=== PATIENT | female | born 1995 | race Caucasian/White ===

== ENCOUNTER → 2018-12-11 14:47 | Outpatient (CLI) | payer OTHER, SELFPAY ==
[2017-10-07 15:39] VITALS: BMI 22.1
[2018-12-17 14:25] LABS: HPV Reflexed? NOT INDICATED
== END ==
PROVIDERS: Family Provider Family Medicine; PCP Family Medicine; Visit Provider Obstetrics & Gynecology
DX: Z12.4 Encounter for screening for malignant neoplasm of cervix (principal)
CPT/HCPCS: 88175; G0145

== ENCOUNTER → 2019-08-27 17:00 | Outpatient (CLI) | payer OTHER, SELFPAY ==
[2019-08-27 11:46] VITALS: BMI 22.1
[2019-08-27 20:13] LABS: Chlamydia Trachomatis by PCR Negative (Negative); Neisserai gonorrhoeae by PCR Negative (Negative); Probe Check PASS; Specimen Processing Control PASS
[2019-08-27 20:14] LABS: Sample Adequacy Control PASS
== END ==
PROVIDERS: Family Provider Family Medicine; PCP Family Medicine; Visit Provider Obstetrics & Gynecology
DX: Z34.90 Encounter for supervision of normal pregnancy, unspecified, unspecified trimester (principal)
CPT/HCPCS: 87086; 87088; 87491; 87591

== ENCOUNTER → 2019-09-23 09:11 | Outpatient (CLI) | payer OTHER, SELFPAY ==
[2019-09-23 09:02] VITALS: BMI 22.1
[2019-09-23 09:39] LABS: Absolute Lymphocyte Count 1.65 X10^3/uL (0.83-4.51); Absolute Neutrophil Count 3.7 X10^3/uL (2.0-7.7); Basophil# 0.03 X10^3/uL; Basophil% 0.5 % (0-1); Eosinophils% 1.7 % (0-5); Hematocrit 36.2 % (37-47); Hemoglobin 11.8 g/dL (12.0-15.0); Lymphocyte # 1.65 X10^3/ul (4.0); Mean Corp Hgb Conc 32.6 g/dL (32-36); Mean Corpuscular Hgb 27.3 pg (27.0-32.0); Mean Corpuscular Volume 83.8 fL (81-99); Mean Platelet Vol. 9.2 fl (6.2-12.0); Monocyte# 0.33 X10^3/uL; Monocyte% 5.6 % (0-10); NRBC Flagged by Analyzer 0 % (0-5); Neutrophil # 3.74 X10^3/uL (2.7-7.7); Neutrophil % 63.5 % (47-70); Platelet Count 271 K/mm3 (150-450); RBC Distribution Width CV 14.1 % (11.6-14.6); RBC Distribution Width SD 43.1 fl (35.1-43.9); Red Blood Count 4.32 M/mm3 (4.2-5.4); White Blood Count 5.9 K/mm3 (4.4-11.0)
[2019-09-23 11:22] LABS: HIV - WCH Non-Reactive (Nonreactive); Hepatitis B Surface Antigen Non-Reactive (Nonreactive); Rubella IgG 250.9 IU/mL
[2019-09-24 01:54] LABS: Rapid Plasmin Reagin (RPR) NONREACTIVE (NONREACTIVE)
== END ==
PROVIDERS: Family Provider Family Medicine; PCP Family Medicine; Referring Provider Obstetrics & Gynecology; Visit Provider Obstetrics & Gynecology
DX: Z34.90 Encounter for supervision of normal pregnancy, unspecified, unspecified trimester (principal)
CPT/HCPCS: 36415; 85025; 86592; 86703; 86762; 86850; 86900; 86901; 87340

== ENCOUNTER → 2019-10-15 17:05 | Outpatient (CLI) | payer OTHER, SELFPAY ==
[2019-10-15 13:10] VITALS: BMI 22.1
== END ==
PROVIDERS: Family Provider Family Medicine; PCP Family Medicine; Referring Provider Nurse Practitioner Women's Health; Visit Provider Nurse Practitioner Women's Health
DX: N39.0 Urinary tract infection, site not specified (principal)
CPT/HCPCS: 87086; 87088

== ENCOUNTER → 2019-12-31 08:27 | Outpatient (CLI) | payer OTHER, SELFPAY ==
[2019-12-18 08:22] VITALS: BMI 25.1
[2019-12-31 09:25] LABS: Absolute Lymphocyte Count 1.49 X10^3/uL (0.83-4.51); Absolute Neutrophil Count 3.4 X10^3/uL (2.0-7.7); Basophil# 0.01 X10^3/uL; Basophil% 0.2 % (0-1); Eosinophil# 0.09 X10^3/uL; Eosinophils% 1.7 % (0-5); Hematocrit 30.6 % (37-47); Hemoglobin 9.4 g/dL (12.0-15.0); Lymphocyte # 1.49 X10^3/ul (4.0); Lymphocyte % 28.3 % (19-41); Mean Corp Hgb Conc 30.7 g/dL (32-36); Mean Corpuscular Hgb 27.3 pg (27.0-32.0); Mean Platelet Vol. 9.6 fl (6.2-12.0); Monocyte# 0.21 X10^3/uL; NRBC Flagged by Analyzer 0 % (0-5); Neutrophil # 3.37 X10^3/uL (2.7-7.7); Neutrophil % 64.1 % (47-70); Platelet Count 238 K/mm3 (150-450); RBC Distribution Width CV 13.6 % (11.6-14.6); RBC Distribution Width SD 44.1 fl (35.1-43.9); Red Blood Count 3.44 M/mm3 (4.2-5.4); White Blood Count 5.3 K/mm3 (4.4-11.0)
[2019-12-31 09:38] LABS: Glucose Challenge Gest 1H 50g 109 mg/dL (70-140)
== END ==
PROVIDERS: PCP Family Medicine; Referring Provider Obstetrics & Gynecology; Visit Provider Obstetrics & Gynecology
DX: Z34.90 Encounter for supervision of normal pregnancy, unspecified, unspecified trimester (principal)
CPT/HCPCS: 36415; 82950; 85025

== ENCOUNTER → 2020-02-25 09:34 | Outpatient (CLI) | payer OTHER, SELFPAY ==
[2020-02-25 09:14] VITALS: BMI 25.1
[2020-02-25 09:55] LABS: Absolute Lymphocyte Count 1.65 X10^3/uL (0.83-4.51); Absolute Neutrophil Count 4.7 X10^3/uL (2.0-7.7); Basophil# 0.03 X10^3/uL; Basophil% 0.4 % (0-1); Eosinophil# 0.08 X10^3/uL; Eosinophils% 1.1 % (0-5); Hematocrit 31.8 % (37-47); Hemoglobin 9.8 g/dL (12.0-15.0); Lymphocyte # 1.65 X10^3/ul (4.0); Lymphocyte % 23.6 % (19-41); Mean Corp Hgb Conc 30.8 g/dL (32-36); Mean Corpuscular Hgb 26.8 pg (27.0-32.0); Mean Corpuscular Volume 87.1 fL (81-99); Mean Platelet Vol. 9.6 fl (6.2-12.0); Monocyte# 0.42 X10^3/uL; NRBC Flagged by Analyzer 0 % (0-5); Neutrophil # 4.73 X10^3/uL (2.7-7.7); Neutrophil % 67.9 % (47-70); Platelet Count 208 K/mm3 (150-450); RBC Distribution Width SD 44.4 fl (35.1-43.9); Red Blood Count 3.65 M/mm3 (4.2-5.4)
== END ==
PROVIDERS: Obstetrics & Gynecology; PCP Family Medicine; Referring Provider Nurse Practitioner Women's Health; Visit Provider Nurse Practitioner Women's Health
DX: O99.019 Anemia complicating pregnancy, unspecified trimester (principal); D64.9 Anemia, unspecified; Z3A.00 Weeks of gestation of pregnancy not specified
CPT/HCPCS: 85025

== ENCOUNTER → 2020-03-08 10:28 | Outpatient (CLI) | payer OTHER, SELFPAY ==
[2020-02-25 09:14] VITALS: BMI 25.1
[2020-03-08 10:44] VITALS: BP 136/76; PULSE 108; RESP 18; TEMP 36.7; BMI 27.4
[2020-03-08] MEDS: 0.9% NaCl IVPB Med Flush (250 mL) 15 ML IV (10:44)
[2020-03-08 12:47] VITALS: BP 123/72; PULSE 93; RESP 16
== END ==
PROVIDERS: PCP Family Medicine; Referring Provider Obstetrics & Gynecology; Visit Provider Obstetrics & Gynecology
DX: O99.019 Anemia complicating pregnancy, unspecified trimester (principal); D64.9 Anemia, unspecified; Z3A.00 Weeks of gestation of pregnancy not specified
CPT/HCPCS: 96365; 96366; J1756; J7050

== ENCOUNTER → 2020-03-10 | Outpatient (CLI) | payer OTHER, SELFPAY ==
[2020-03-10 09:15] VITALS: BMI 27.5
== END | disposition home or self-care (01) ==
LOC: LABSPEC 16:01
PROVIDERS: Referring Provider Obstetrics & Gynecology; Visit Provider Obstetrics & Gynecology
DX: Z34.03 Encounter for supervision of normal first pregnancy, third trimester (principal)
CPT/HCPCS: 87081

== ENCOUNTER → 2020-03-15 10:31 | Outpatient (CLI) | payer OTHER, SELFPAY ==
[2020-02-25 09:14] VITALS: BMI 25.1
[2020-03-10 09:15] VITALS: BMI 27.5
[2020-03-15 10:35] VITALS: BP 122/75; PULSE 100; RESP 16; TEMP 36.4; O2SAT 100; BMI 27.3
[2020-03-15] MEDS: 0.9% NaCl Peripheral Flush Adult/Peds IV (10:46)
[2020-03-15] MEDS: 0.9% NaCl IVPB Med Flush (250 mL) 15 ML IV (10:47)
[2020-03-15 12:35] VITALS: BP 109/73; PULSE 98
--- NOTE | 2020-03-15 14:02 | US_ITS ---
STUDY: SECOND AND THIRD TRIMESTER OBSTETRICAL ULTRASOUND - LIMITED REASON FOR EXAM: Female, 24 years old. Anemia. growth. LMP: 06/09/2019 PRIOR ULTRASOUND: None. TECHNIQUE: Transabdominal ultrasound evaluation was performed. FINDINGS: There is a single intrauterine fetus. The fetus is in a cephalic presentation. There is demonstrated cardiac activity with a heart rate of 151 bpm. There is a normal amniotic fluid volume. The largest amniotic fluid pocket measures 6.2 cm. The amniotic fluid index (KELLE) is 16.6 cm. The placenta is posterior. The cervix is closed and measures 3.8 cm in length. The relationship of the placenta and the cervix is not evaluated due to the full urinary bladder. BIOMETRY: BPD: 9.36 cm: 38 weeks, 0 days HC: 33.65 cm: 38 weeks, 3 days AC: 34.87 cm: 38 weeks, 5 days FL: 7.50 cm: 38 weeks, 2 days Age by LMP: 37 weeks, 4 days. ZOË by LMP: 04/01/2020. age by prior US: 37 weeks, 5 days. ZOË by prior US: 03/31/2020. age by current US: 38 weeks, 2 days. ZOË by current US: 03/27/2020. Estimated weight: 3533 grams, +/- 523 grams, 82.3 percentile. US/OB Limited With Biometrics IMPRESSION: Single live intrauterine gestation at approximately 38 weeks and 2 days based on the current ultrasound. Electronically Signed: Yusef Webb, at 15:22 EDT Tel , Service support ,
== END ==
PROVIDERS: PCP Family Medicine; Referring Provider Obstetrics & Gynecology; Visit Provider Obstetrics & Gynecology
DX: O99.019 Anemia complicating pregnancy, unspecified trimester (principal); D64.9 Anemia, unspecified; O26.843 Uterine size-date discrepancy, third trimester; Z3A.38 38 weeks gestation of pregnancy
CPT/HCPCS: 96365; 96366; 76816; J1756; J7050; A4216

== ENCOUNTER → 2020-03-24 09:30 | Outpatient (CLI) | payer OTHER, SELFPAY ==
[2020-02-25 09:14] VITALS: BMI 25.1
[2020-03-24 09:10] VITALS: BMI 27.3
[2020-03-24 09:47] VITALS: BP 108/70; PULSE 106; RESP 16; TEMP 36.4; O2SAT 98; BMI 27.8
[2020-03-24] MEDS: 0.9% NaCl IVPB Med Flush (250 mL) 15 ML IV (09:58)
[2020-03-24] MEDS: 0.9% NaCl Peripheral Flush Adult/Peds IV (09:58)
[2020-03-24 11:53] VITALS: BP 108/66; PULSE 90; RESP 16
== END ==
PROVIDERS: PCP Family Medicine; Referring Provider Obstetrics & Gynecology; Visit Provider Obstetrics & Gynecology
DX: O99.019 Anemia complicating pregnancy, unspecified trimester (principal); D64.9 Anemia, unspecified; Z3A.00 Weeks of gestation of pregnancy not specified
CPT/HCPCS: 96365; 96366; J1756; J7050; A4216

== ENCOUNTER 2020-03-27 07:57 | Inpatient (IN) | payer OTHER, SELFPAY ==
[2020-03-24 09:47] VITALS: BMI 27.8
[2020-03-27] VITALS (20 sets, daily range): BP systolic 114–142; BP diastolic 66–84; PULSE 90–121; TEMP 36.3–36.9; O2SAT 97–100; BMI 27.9
[2020-03-27] MEDS: 0.9% Saline Lock 10 ML Syringe IV (08:44)
[2020-03-27 09:07] LABS: Absolute Lymphocyte Count 1.71 X10^3/uL (0.83-4.51); Absolute Neutrophil Count 4.2 X10^3/uL (2.0-7.7); Basophil# 0.03 X10^3/uL; Basophil% 0.5 % (0-1); Eosinophil# 0.09 X10^3/uL; Eosinophils% 1.4 % (0-5); Hematocrit 35.8 % (37-47); Lymphocyte # 1.71 X10^3/ul (4.0); Lymphocyte % 25.9 % (19-41); Mean Corp Hgb Conc 30.7 g/dL (32-36); Monocyte# 0.51 X10^3/uL; Monocyte% 7.7 % (0-10); NRBC Flagged by Analyzer 0 % (0-5); Neutrophil # 4.16 X10^3/uL (2.7-7.7); Neutrophil % 62.8 % (47-70); Platelet Count 218 K/mm3 (150-450); RBC Distribution Width CV 15.3 % (11.6-14.6); Red Blood Count 4.07 M/mm3 (4.2-5.4); White Blood Count 6.6 K/mm3 (4.4-11.0)
[2020-03-27] MEDS: Lactated Ringers 1,000 ML 50 ML IV (12:53)
[2020-03-27] MEDS: Oxytocin 30 units/NS 500 ml 30 UNITS/500 ML IV.SOLN IV (12:53)
--- NOTE | 2020-03-27 13:19 | HP.PCM_ITS ---
- Problem List (1) SROM (spontaneous rupture of membranes) Status: Acute (2) Anemia affecting Status: Acute Qualifiers: Comment: Start iron, repeat cbc end of february (3) Large for gestational age fetus Status: Acute Comment: IoL at 39 weeks; COVID testing ordered 03/24/20 (4) Status: Acute Qualifiers: Comment: declines genetic, carrier and NTD testing at this time. Anatomy US normal. (5) Supervision of normal Status: Acute Qualifiers: Comment: PRR ZOË 04/01/20 girl Jude Spouse Christianne History and Physical Date of Admission: 03/27/20 Intake Vital Signs 03/24/20 BMI 27.3 03/24/20 Height 5 ft 4 in 03/24/20 Height 5 ft 4 in 03/24/20 Weight: 163 lb 03/24/20 BMI 27.9 03/24/20 BP 136/80 H Intake Visit Reasons: 38 WEEK OB Project Financial Analyst Required: No Is patient in pain?: No Allergies naproxen [From Naprosyn] Adverse Reaction (Verified 03/24/20 09:04) Vomiting Medications PNV w/calcium 66-iron 27 mg-folic 1.25 mg-DSS 55 mg-dha 300 mg capsule cap PO cap 08/27/19 [History Confirmed 03/24/20] Last Menstral Period: 06/26/19 Zika: Zika virus screening: Negative : No PFSH PFSH Medical History Left knee injury (Resolved) Surgical History S/P breast biopsy, bilateral (Acute) Family History Mother Colon cancer Father Hypertension Social History (Updated 03/24/20 @ 09:[address] Louisa Mancini MD) adopted: No household members: spouse housing: house current occupational status: employed current occupation: [place] pets and animals: Yes history of recent travel: No sexually active: Yes Smoking Status: Unknown if ever smoked second hand exposure: No alcohol intake: never substance use type: does not use caffeine: No frequency: 1-2 times per week seatbelt use: always do you feel safe at home: Yes additional social history: Christianne- [employer] History 1 Elective abortions Hx Para Spontaneous abortions Hx # Term Pregnancies Ectopic pregnancies Hx # Pregnancies Multiple births # of living children HPI 38 WEEK OB: Details: MAIRA CELESTIN is a 24 year old G1, P0 presents at 39 weeks 2 days with spontaneous rupture membranes clear fluid. It was discussed to induce around this time anyways due to large for gestational age with estimated weight of being in the 85th and 90th percentile. Overall estimated weight at this time is approximately 8 pounds. OB Visit ZOË Calculator Estimated Delivery Date Method Current WG Current Estimate 04/01/20 LMP (Certain) 38w 6d Expected Delivery Route/Plan Labor Preferences- labor support person: christianne pain management options preferred: minimal intervention cut cord/dad catch: cord : yes PP control planned: [] discussed possible routes of delivery and associated risks: [] special requests: [] Specific Issue/Plans flu vaccine: declined tdap vaccine: given rhogam: na LARC form signed: yes movement and labor precautions reviewed. Problem list reviewed and updated with the most current plan of care details and appropriate orders placed. Relevant counseling for the gestational age provided. Continue routine care and follow up unless otherwise noted in visit notes/problem list details Initial Weight: 134 lb Date EGA Weight BP Urine Prot Glucose FHR FuHt Pres Dilation Effaced St Visit Note 09/23/19 12w 5d 136 lb (+2 lb) 126/84 140 10/23/19 17w 0d 138 lb (+4 lb) 112/74 Negative Negative 145 SM- no vb cramping 11/23/19 21w 3d 146 lb 8 oz (+12 lb 8 oz) 133/83 Negative Negative 145 SM- no vb lof good fm no regular ctx 12/18/19 25w 0d 150 lb 4 oz (+16 lb 4 oz) 126/68 Negative Negative 140 25 SM- no vb lof good fm no reg ctx 12/31/19 26w 6d 153 lb (+19 lb) 120/70 Negative Negative 145 27 SM- no vb lof good fm no regular ctx 01/14/20 28w 6d 153 lb 8 oz (+19 lb 8 oz) 108/58 Negative Negative 140 30 Cephalic SM- no vb lof good fm no regular ctx tdap given 01/28/20 30w 6d 154 lb 8 oz (+20 lb 8 oz) 120/68 Negative Negative 140 32 Cephalic SM- no vb lof good fm no regular ctx 02/25/20 34w 6d 161 lb 8 oz (+27 lb 8 oz) 122/68 Trace Negative 148 35 MH-NO VB, LOF. Good FM. 03/10/20 36w 6d 160 lb 8 oz (+26 lb 8 oz) 114/76 Negative Negative 150 39 Cephalic 1 20 -3 SM- no vb lof good fm no regular ctx gbs today 03/17/20 37w 6d 163 lb (+29 lb) 115/68 145 40 Cephalic 3 60 -2 SM- no vb lof good fm no regular ctx 03/24/20 38w 6d 163 lb (+29 lb) 136/80 Negative Negative 140 41 Cephalic 3 60 -2 SM- no vb lof good fm no regular ctx plan IOL 39 weeks macrosomia ACOG First Trimester First Trimester: Desire for , Alcohol, Tobacco Cessation, Illicit/Recreational Drug/Substance Use, Intimate Partner Violence, Barriers to care, Unstable Housing, Communication Barriers, Environmental/Work Hazards, Anticipated Course of Care, Toxoplasmosis Precations, Use of Any medications, Sexual activity, Exercise, Dental Care, Sauna/Hot tub use, Seat Belt use, Childbirth classes/Hospital facilities, , Travel, Indications for US and Screening for Aneuploidy Second Trimester Second Trimester: Signs and Symptoms of Labor, Selecting a care provider, Reproductive Life Planning, Care Planning, Tobacco Cessation, Depression/Anxiety and Intimate Partner Violence Third Trimester Third Trimester: Pain Management Plans, Labor support person(s), Immediate Larc, Movement Monitoring and Feeding Yes ; discussed Trial of Labor after Counseling or discussed Circumcision preference Diagnostics Diagnostics Diagnostics Glucose 1 Hr 50 gm 109 mg/dL (70-140) 12/31/19 Hgb 9.8 g/dL (12.0-15.0) L 02/25/20 Hct 31.8 % (37-47) L 02/25/20 Details: HIV: Urine Culture: Sequential Screen: NIPT Screen: ROS Const Reports system reviewed and no additional complaints, except as docu Card Reports system reviewed and no additional complaints, except as docu Resp Reports system reviewed and no additional complaints, except as docu GI Reports system reviewed and no additional complaints, except as docu, Reports nausea Reports system reviewed and no additional complaints, except as docu Musc Reports system reviewed and no additional complaints, except as docu Exam Const General: cooperative, healthy appearing, comfortable, anxious HENMT Head: normal to inspection Nose: external nose normal Face and sinus: normal facial exam Neck Neck: normal visual inspection, full ROM, no lymphadenopathy Thyroid: thyroid normal Chest Chest palpation & inspection: normal inspection of the chest Resp Effort & Inspection: normal respiratory effort GI Inspection: normal to inspection Palpation: soft, other (gravid uterus) Other: vertex and appropriate size for gestational age Other: Cervical Exam: Extrem General: pedal edema Results POC Urinalysis 2 Dip (Clinic) Office Urine Glucose Negative Last Edit by Elodia Bruner on 03/24/20 09:18 Office Urine Protein Negative Last Edit by Elodia Bruner on 03/24/20 09:18 Assessment & Plan Problems 1. Anemia affecting in third trimester O99.013 Start iron, repeat cbc end of february 2. Encounter for supervision of normal first in third trimester Z34.03 PRR ZOË 04/01/20 girl Jude Spouse Christianne 3. 38 weeks gestation of Z3A.38 declines genetic, carrier and NTD testing at this time. Anatomy US normal. 4-year-old G1, P0 at 39 weeks 2 days presents with spontaneous rupture of membranes Additional bag ruptured and clear fluid seen. Pitocin augmentation due to minimal cervical change. Epidural if desired. Orders Orders: POC Urinalysis 2 Dip (Clinic) Today Coding Level of Care Code OB Routine Diagnoses Anemia affecting in third trimester O99.013 ??Trimester: third trimester Encounter for supervision of normal first in third trimester Z34.03 ??Normal : normal first ??Trimester: third trimester 38 weeks gestation of Z3A.38 ??Weeks of gestation: 38 weeks
[2020-03-27] MEDS: fentaNYL 100 MCG/2 ML Ampul IV (15:12)
[2020-03-27] MEDS: Lactated Ringers 1,000 ML 200 ML IV (19:32)
--- NOTE | 2020-03-27 21:28 | PCM.OPRPT ---
Problem List (1) SROM (spontaneous rupture of membranes) Status: Acute (2) Anemia affecting Status: Acute Qualifiers: Comment: Start iron, repeat cbc end of february (3) Large for gestational age fetus Status: Acute Comment: IoL at 39 weeks; COVID testing ordered 03/24/20 (4) Status: Acute Qualifiers: Comment: declines genetic, carrier and NTD testing at this time. Anatomy US normal. (5) Supervision of normal Status: Acute Qualifiers: Comment: PRR ZOË 04/01/20 girl Jude Spouse Víctor Vaginal Delivery Maternal Presentation: Active Labor, Spontaneous Rupture of Membranes 24 yo @ 39w2d presents with SROm clear fluid 4 cm Amniotic Membrane Rupture Type: Spontaneous at home Amniotic Fluid Description: Clear Final ZOË: 04/01/20 Gestational age: 39 Weeks and 2 Days Date of Procedure: 03/27/20 Pre-Operative Diagnosis: srom Post-Operative Diagnosis: same Surgery/ Procedure Performed: Spontaneous Vaginal Delivery Type of Anesthesia: Local with 1% lidocaine Description of Procedure: Patient began pushing and delivered the head in the ROP presentation. The head was delivered atraumatically. The anterior and posterior shoulders delivered without complication followed by the rest of the infant and the was placed on the maternal abdomen. Delayed cord clamping was employed for approximately 60 seconds. Cord was clamped and cut and gentle traction was applied to the cord and the placenta delivered spontaneously immediately following it was noted to be intact with three-vessel cord. The perineum and vagina were inspected and noted to have a second-degree perineal laceration which was injected with 1% lidocaine. EBL was 400 cc. Patient and tolerated delivery well. Placental Delivery Description: Spontaneous Placenta Disposition: [facility] Cord Vessel Description: 3 Vessels Cord Entanglement: None Estimated Blood Loss: 400 Infant A gender: Female Episiotomy Description: None Laceration: Perineal Extension/lac, 2nd degree Medications given after delivery: IV Pitocin Complications: None Multi Select Codes - Urinary/Genital Urinary/Genital CPT Codes: 39807 Vaginal Delivery global pk
--- NOTE | 2020-03-27 21:31 | DCINST_ITS ---
Discharge Diet: No Restrictions Discharge Activity: Return to Normal Activity, May not drive while taking narcotic pain medications., May Shower May resume sexual activity in: 4-6 weeks Call your doctor if your incision/area has: Continuous Slow Oozing, Sudden Increased Bleeding, Increased Pain/ Swelling, Increased Redness, Foul Smelling Discharge Additional Instructions: If you experience any of the following, contact your healthcare provider. * Bleeding that soaks a pad every hour for 2 hours * Fever 100.4 or higher * Unrelieved incision or abdominal pain * Swelling, redness, discharge or bleeding from your incision or episiotomy site * Your incision begins to separate * Problems urinating (including inability to urinate or burning while urinating). * Visual changes * Severe headache * Flu-like symptoms * Pain or redness in one of both of your breasts * Pain, warmth, tenderness or swelling in your legs, especially the calf area * Frequent nausea and vomiting * Symptoms of depression or anxiety If you experience any of the following, call 911 or go to the nearest Emergency Room. * Chest pain * Problems breathing * Seizure activity * Partial or complete paralysis of a body part, slurred speech, weakness or drooping of the face, or a sudden inability to walk or hold your balance Allergies/Adverse Reactions: Allergies naproxen [From Naprosyn] Adverse Reaction (Verified 03/27/20 08:32) Vomiting Medications to take at Discharge PNV w/calcium 66-iron 27 mg-folic 1.25 mg-DSS 55 mg-dha 300 mg capsule 1 cap PO DAILY cap 08/27/19 Please Follow Up With: Louisa Mancini MD - [phone] When: Call to make an appointment with your doctor in 6 weeks. If you had elevated Blood pressure or 4th degree laceration you will need to be seen in 2 weeks. Test Results: Test results from this visit will be discussed in further detail at your follow- up appointment, if applicable.
--- NOTE | 2020-03-27 21:31 | PCM.DCVAG ---
Discharge Diet: No Restrictions Discharge Activity: Return to Normal Activity, May not drive while taking narcotic pain medications., May Shower May resume sexual activity in: 4-6 weeks Call your doctor if your incision/area has: Continuous Slow Oozing, Sudden Increased Bleeding, Increased Pain/ Swelling, Increased Redness, Foul Smelling Discharge Additional Instructions: If you experience any of the following, contact your healthcare provider. Bleeding that soaks a pad every hour for 2 hours Fever 100.4 or higher Unrelieved incision or abdominal pain Swelling, redness, discharge or bleeding from your incision or episiotomy site Your incision begins to separate Problems urinating (including inability to urinate or burning while urinating). Visual changes Severe headache Flu-like symptoms Pain or redness in one of both of your breasts Pain, warmth, tenderness or swelling in your legs, especially the calf area Frequent nausea and vomiting Symptoms of depression or anxiety If you experience any of the following, call 911 or go to the nearest Emergency Room. Chest pain Problems breathing Seizure activity Partial or complete paralysis of a body part, slurred speech, weakness or drooping of the face, or a sudden inability to walk or hold your balance Allergies/Adverse Reactions: Allergies naproxen [From Naprosyn] Adverse Reaction (Verified 03/27/20 08:32) Vomiting Medications to take at Discharge PNV w/calcium 66-iron 27 mg-folic 1.25 mg-DSS 55 mg-dha 300 mg capsule 1 cap PO DAILY cap 08/27/19 Please Follow Up With: Louisa Mancini MD - [phone] When: Call to make an appointment with your doctor in 6 weeks. If you had elevated Blood pressure or 4th degree laceration you will need to be seen in 2 weeks. Test Results: Test results from this visit will be discussed in further detail at your follow-up appointment, if applicable.
[2020-03-27] MEDS: Lactated Ringers 500 ML 999 ML IV (21:53)
[2020-03-27] MEDS: Oxytocin 30 units/NS 500 ml 30 UNITS/500 ML IV.SOLN 334 UNITS IV (23:05)
[2020-03-28] VITALS (15 sets, daily range): BP systolic 104–141; BP diastolic 65–79; PULSE 93–111; RESP 16–18; TEMP 36.4–37.6; O2SAT 96–99
[2020-03-28] MEDS: Acetaminophen 500 MG Tablet 1000 MG PO ×3 (00:34→21:03)
[2020-03-28] MEDS: 0.9% Saline Lock 10 ML Syringe IV (01:38)
[2020-03-28] MEDS: Prenatal Vits Tablet 1 TABLET PO (09:15)
--- NOTE | 2020-03-28 09:18 | PCM.PN.OB ---
Patient Problems: Active and Suspected Problems (Last Reviewed 03/24/20 @ 09:04 by Elodia Bruner) SROM (spontaneous rupture of membranes) (Acute) Subjective: Doing well, no complaints.Pain controlled. Denies CP, SOB, N,V. Ambulating well, tolerating po. Lochia moderate, going well. - Physical Exam Vitals/I&O's: Vital Signs Temp Pulse Resp BP Pulse Ox 98.2 F 100 16 104/66 98 03/28/20 06:27 03/28/20 09:11 03/28/20 06:27 03/28/20 09:11 03/28/20 06:27 Oxygen Delivery Method Room Air Weight: 162 lb 11.218 oz Body Mass Index (BMI) 27.9 Intake and Output for Last 24 Hours 03/26/20 03/27/20 03/28/20 23:59 23:59 23:59 Intake Total 3053.49 / 3053.49 333 / 333 Output Total 750 / 750 800 / 800 Balance 2303.49 / 2303.49 -467 / -467 General: Alert, Oriented x3 Abdomen: Soft, Non Tender, - - FF below U Microbiology Past 72 Hours 03/27/20 09:08 Mucosa - Nasopharyngeal Coronavirus COVID-19 PCR - Final Laboratory Results 03/27/20 08:44: Blood Type A POSITIVE, Antibody Screen NEGATIVE Current Medications Acetaminophen (Tylenol) 1,000 mg PO Q8H PRN PRN PRN Reason: Pain Score 1-3/10 Last Admin: 03/28/20 00:34 Dose: 1,000 mg Documented by: Bisacodyl (Dulcolax) 10 mg RECTAL UD PRN PRN Reason: If no BM Dibucaine (Dibucaine) 1 applic TOPICAL TID PRN PRN; Protocol PRN Reason: Discomfort Hydrocortisone (Hytone) 1 applic TOPICAL TID PRN PRN; Protocol PRN Reason: Discomfort Methylergonovine Maleate (Methergine) 0.2 mg IM X1 PRN PRN Reason: Excess bleeding/uterine atony Ondansetron HCl (Zofran) 4 mg IV Q4H PRN PRN PRN Reason: Nausea Oxycodone HCl (Oxyir) 5 - 10 mg PO Q4H PRN PRN PRN Reason: Pain Score 4-10/10 Multivit/Folic Acid/Iron (Prenatabs Fa) 1 tablet PO DAILY TERESA Last Admin: 03/28/20 09:15 Dose: 1 tablet Documented by: Senna/Docusate Sodium (Senokot-S, Anni-Colace) 1 - 2 tablet PO DAILY PRN PRN PRN Reason: Constipation Simethicone (Mylicon) 80 mg PO PCHS PRN PRN Reason: Indigestion/Stomach pain Sodium Chloride () 5 - 15 ml IV UD PRN PRN Reason: SALINE FLUSH Last Admin: 03/28/20 01:38 Dose: 10 ml Documented by: Medical Necessity - Tobacco Use Smoking Status: Never smoker Assessment/Plan All Active Problems (Last Reviewed 03/24/20 @ 09:04 by Elodia Bruner) SROM (spontaneous rupture of membranes) (Acute) Large for gestational age fetus (Acute) Anemia affecting (Acute) Supervision of normal (Acute) (Acute) Left knee injury (Resolved) s/p PPD # 1 1. routine post delivery care 2. breast feeding- support given 3. rh positive 4. rubella immune
[2020-03-28] MEDS: Dibucaine 30 GM Tube 1 APPLIC TOPICAL (10:05)
[2020-03-29 02:58] VITALS: BP 114/71; PULSE 100
[2020-03-29 03:00] VITALS: BP 114/71; PULSE 88; RESP 18; TEMP 36.7
[2020-03-29] MEDS: Acetaminophen 500 MG Tablet 1000 MG PO (05:58)
--- NOTE | 2020-03-29 07:56 | PCM.PN.OB ---
Patient Problems: Active and Suspected Problems (Last Reviewed 03/24/20 @ 09:04 by Elodia Bruner) SROM (spontaneous rupture of membranes) (Acute) Subjective: Doing well, no complaints.Pain controlled. Denies CP, SOB, N,V. Ambulating well, tolerating po. Lochia moderate, going well. - Physical Exam Vitals/I&O's: Vital Signs Temp Pulse Resp BP Pulse Ox 98.0 F 88 18 114/71 98 03/29/20 03:00 03/29/20 03:00 03/29/20 03:00 03/29/20 03:00 03/28/20 16:14 Oxygen Delivery Method Room Air Weight: 162 lb 11.218 oz Body Mass Index (BMI) 27.9 Intake and Output for Last 24 Hours 03/27/20 03/28/20 03/29/20 23:59 23:59 23:59 Intake Total 3053.49 / 3053.49 333 / 333 Output Total 750 / 750 800 / 800 Balance 2303.49 / 2303.49 -467 / -467 General: Alert, Oriented x3 Abdomen: Soft, Non Tender, - - FF at U Microbiology Past 72 Hours 03/27/20 09:08 Mucosa - Nasopharyngeal Coronavirus COVID-19 PCR - Final Current Medications Acetaminophen (Tylenol) 1,000 mg PO Q8H PRN PRN PRN Reason: Pain Score 1-3/10 Last Admin: 03/29/20 05:58 Dose: 1,000 mg Documented by: Bisacodyl (Dulcolax) 10 mg RECTAL UD PRN PRN Reason: If no BM Dibucaine (Dibucaine) 1 applic TOPICAL TID PRN PRN; Protocol PRN Reason: Discomfort Last Admin: 03/28/20 10:05 Dose: 1 tube Documented by: Hydrocortisone (Hytone) 1 applic TOPICAL TID PRN PRN; Protocol PRN Reason: Discomfort Methylergonovine Maleate (Methergine) 0.2 mg IM X1 PRN PRN Reason: Excess bleeding/uterine atony Ondansetron HCl (Zofran) 4 mg IV Q4H PRN PRN PRN Reason: Nausea Oxycodone HCl (Oxyir) 5 - 10 mg PO Q4H PRN PRN PRN Reason: Pain Score 4-10/10 Multivit/Folic Acid/Iron (Prenatabs Fa) 1 tablet PO DAILY TERESA Last Admin: 03/28/20 09:15 Dose: 1 tablet Documented by: Senna/Docusate Sodium (Senokot-S, Anni-Colace) 1 - 2 tablet PO DAILY PRN PRN PRN Reason: Constipation Simethicone (Mylicon) 80 mg PO PCHS PRN PRN Reason: Indigestion/Stomach pain Sodium Chloride () 5 - 15 ml IV UD PRN PRN Reason: SALINE FLUSH Last Admin: 03/28/20 01:38 Dose: 10 ml Documented by: Medical Necessity - Tobacco Use Smoking Status: Never smoker Assessment/Plan All Active Problems (Last Reviewed 03/24/20 @ 09:04 by Elodia Bruner) SROM (spontaneous rupture of membranes) (Acute) Large for gestational age fetus (Acute) Anemia affecting (Acute) Supervision of normal (Acute) (Acute) Left knee injury (Resolved) s/p PPD # 2 1. routine post delivery care 2. breast feeding- support given 3. rh positive 4. rubella immune 5. home today
[2020-03-29 09:00] VITALS: BP 114/69; PULSE 83; RESP 16; TEMP 36.2
[2020-03-29 09:18] VITALS: BP 114/69; PULSE 93
[2020-03-29] MEDS: Prenatal Vits Tablet 1 TABLET PO (10:45)
== END 2020-03-29 11:00 | disposition home or self-care (01) | DRG 807 ==
PROVIDERS: Admitting Provider Obstetrics & Gynecology; Visit Provider Obstetrics & Gynecology
DX: O42.92 Full-term premature rupture of membranes, unspecified as to length of time between rupture and onset of labor (principal); Z37.0 Single live birth; O36.63X0 Maternal care for excessive fetal growth, third trimester, not applicable or unspecified; O99.02 Anemia complicating childbirth; D64.9 Anemia, unspecified; O70.1 Second degree perineal laceration during delivery; Z3A.39 39 weeks gestation of pregnancy; Z28.21 Immunization not carried out because of patient refusal
CPT/HCPCS: 59025; 59050; 85025; 86850; 86900; 86901; 87635; 99218; G2023; J7120; A4216; G0378; U0004

== ENCOUNTER → 2020-10-18 | Outpatient (CLI) | payer OTHER, SELFPAY ==
[2020-05-10 15:58] VITALS: BMI 27.9
== END | disposition home or self-care (01) ==
LOC: LABSPEC 15:15
PROVIDERS: PCP Family Medicine; Visit Provider Family Medicine
DX: U07.1 COVID-19 (principal)
CPT/HCPCS: 87635; U0003

== ENCOUNTER → 2021-05-11 09:41 | Outpatient (CLI) | payer OTHER, SELFPAY ==
[2021-05-11 08:41] VITALS: BMI 27.9
[2021-05-11 10:07] LABS: Absolute Lymphocyte Count 1.33 X10^3/uL (0.83-4.51); Absolute Neutrophil Count 2.1 X10^3/uL (2.0-7.7); Basophil# 0.04 X10^3/uL; Eosinophil# 0.32 X10^3/uL; Eosinophils% 7.8 % (0-5); Hematocrit 39.9 % (37-47); Hemoglobin 12.3 g/dL (12.0-15.0); Lymphocyte # 1.33 X10^3/ul (0.83-4.51); Lymphocyte % 32.4 % (19-41); Mean Corp Hgb Conc 30.8 g/dL (32-36); Mean Corpuscular Hgb 25.7 pg (27.0-32.0); Mean Corpuscular Volume 83.3 fL (81-99); Mean Platelet Vol. 9.4 fl (6.2-12.0); Monocyte# 0.33 X10^3/uL; NRBC Flagged by Analyzer 0 % (0-5); Neutrophil # 2.07 X10^3/uL (2.7-7.7); Neutrophil % 50.6 % (47-70); Platelet Count 313 K/mm3 (150-450); RBC Distribution Width CV 13.9 % (11.6-14.6); RBC Distribution Width SD 42.3 fl (35.1-43.9); Red Blood Count 4.79 M/mm3 (4.2-5.4); White Blood Count 4.1 K/mm3 (4.4-11.0)
[2021-05-11 10:39] LABS: Thyroid Stim Hormone (TSH) 1.82 uIU/mL (0.358-3.74)
[2021-05-16 16:11] LABS: HPV Reflexed? NOT INDICATED
== END ==
PROVIDERS: PCP Family Medicine; Referring Provider Obstetrics & Gynecology; Visit Provider Obstetrics & Gynecology
DX: Z12.4 Encounter for screening for malignant neoplasm of cervix (principal); N93.9 Abnormal uterine and vaginal bleeding, unspecified
CPT/HCPCS: 36415; 84443; 85025; 88175; G0145

== ENCOUNTER → 2022-06-22 | Outpatient (CLI) | payer OTHER, SELFPAY ==
[2022-06-22 11:19] LABS: Erythrocyte Sedimentation Rate 16 mm/hr (0-30)
[2022-06-22 11:21] LABS: Hemoglobin 11.7 g/dL (12.0-15.0); Mean Corp Hgb Conc 30.8 g/dL (32-36); Mean Corpuscular Hgb 23.9 pg (27.0-32.0); Mean Corpuscular Volume 77.7 fL (81-99); Mean Platelet Vol. 9.7 fl (6.2-12.0); Platelet Count 359 K/mm3 (150-450); RBC Distribution Width CV 17.7 % (11.6-14.6); RBC Distribution Width SD 48.4 fl (35.1-43.9); Red Blood Count 4.89 M/mm3 (4.2-5.4)
[2022-06-22 11:43] LABS: T3 Total - Triiodothyronine 1.22 ng/mL (0.6-1.81); Vitamin D,25 Hydroxy 23.4 ng/mL
[2022-06-22 11:55] LABS: ALB/GLOB Ratio 1.1 RATIO (0.9-2.4); AST(SGOT) 11 U/L (15-37); Alanine Aminotransfer ALT/SGPT 17 U/L (13-56); Albumin, Serum 4.1 g/dL (3.2-5.0); Alkaline Phosphatase 47 U/L (45-117); Anion Gap 4 (5-15); BUN 13 mg/dL (7-18); BUN/Creat Ratio 14.1 RATIO (10-20); Chloride 109 mmol/L (98-107); Creatinine, Serum 0.92 mg/dL (0.55-1.02); EST Glomerular Filtration Rate 78 mL/min (>60); Est Glom Filt Rate - Afr Amer 94 mL/min (>60); Ferritin 12 ng/mL (8-252); Free T3 2.9 pg/mL (2.18-3.98); Globulin 3.7 g/dL (2.2-4.2); Glucose 82 mg/dL (74-106); Protein, Total 7.8 g/dL (6.4-8.2); Rheumatoid Factor < 10.0 IU/mL (<15); Sodium Level 139 mmol/L (136-145); T3 Uptake 32 % (30-39); T4 Total, Thyroxin 10.3 ug/dL (4.8-13.9); T7 / Free Thyroxin Index 3.3 (1.4-4.5); Thyroid Stim Hormone (TSH) 1.78 uIU/mL (0.358-3.74); Uric Acid 4.4 mg/dL (2.6-6.0)
[2022-06-29 09:08] LABS: Thyroid Stim Immunoglob <0.10 IU/L (0.00-0.55)
[2022-07-01 14:14] LABS: T3 Reverse 16.9 ng/dL (9.2-24.1); Thyroglobulin Antibody < 1.0 IU/mL (0.0-0.9); Thyroid Peroxidase AB < 8 IU/mL (0-34)
== END | disposition home or self-care (01) ==
PROVIDERS: PCP Family Medicine; Referring Provider Obstetrics & Gynecology; Visit Provider Obstetrics & Gynecology
DX: N93.9 Abnormal uterine and vaginal bleeding, unspecified (principal); E07.9 Disorder of thyroid, unspecified; Z01.89 Encounter for other specified special examinations
CPT/HCPCS: 36415; 80053; 82306; 82728; 84436; 84443; 84445; 84479; 84480; 84481; 84482; 84550; 85027; 85652; 86376; 86431; 86800; 87070; 87205

== ENCOUNTER → 2022-07-06 | Outpatient (CLI) | payer OTHER, SELFPAY ==
--- NOTE | 2022-07-06 12:57 | US_ITS ---
INDICATION: Abnormal uterine bleeding, spotting between menses. EXAMINATION: US Pelvis Non OB Complete With Transvaginal Imaging TECHNIQUE: Transvaginal pelvic ultrasound was performed. Grayscale and color flow Doppler evaluation of the adnexa. COMPARISON: None. FINDINGS: Retroverted uterus measures 8.9 x 4.4 x 6.1 cm. No endometrial lesion or uterine mass demonstrated. Endometrial complex measures 12.6 mm diameter. Trilaminar endometrial echotexture compatible with normal proliferative phase. Unremarkable cervix. No adnexal mass or significant free pelvic fluid demonstrated. Bilateral ovaries demonstrate normal color Doppler flow. Right ovary measures 3.7 x 2.1 x 2.7 cm and left ovary 3 x 1.3 x 1.5 cm. There are anechoic bilateral ovarian follicles. Dominant anechoic right ovarian follicle measures 2 cm diameter. US/Pelvic (Non ) IMPRESSION: Pelvic ultrasound with no acute abnormality. Dominant 2 cm right ovarian follicle noted. Electronically Signed: Jeramie Davies MD at 4:31 EDT ,
--- NOTE | 2022-07-06 12:57 | US_ITS ---
INDICATION: Abnormal uterine bleeding, spotting between menses. EXAMINATION: US Pelvis Non OB Complete With Transvaginal Imaging TECHNIQUE: Transvaginal pelvic ultrasound was performed. Grayscale and color flow Doppler evaluation of the adnexa. COMPARISON: None. FINDINGS: Retroverted uterus measures 8.9 x 4.4 x 6.1 cm. No endometrial lesion or uterine mass demonstrated. Endometrial complex measures 12.6 mm diameter. Trilaminar endometrial echotexture compatible with normal proliferative phase. Unremarkable cervix. No adnexal mass or significant free pelvic fluid demonstrated. Bilateral ovaries demonstrate normal color Doppler flow. Right ovary measures 3.7 x 2.1 x 2.7 cm and left ovary 3 x 1.3 x 1.5 cm. There are anechoic bilateral ovarian follicles. Dominant anechoic right ovarian follicle measures 2 cm diameter. US/Transvaginal Non- IMPRESSION: Pelvic ultrasound with no acute abnormality. Dominant 2 cm right ovarian follicle noted. Electronically Signed: Jeramie Davies MD at 4:31 EDT ,
== END | disposition home or self-care (01) ==
PROVIDERS: PCP Family Medicine; Referring Provider Obstetrics & Gynecology; Visit Provider Obstetrics & Gynecology
DX: N93.9 Abnormal uterine and vaginal bleeding, unspecified (principal)
CPT/HCPCS: 76830; 76856

== ENCOUNTER → 2023-07-26 | Outpatient (CLI) | payer OTHER, SELFPAY ==
[2023-07-30 00:06] LABS: Chlamydia By Nucleic Acid AMP Negative (Negative); Gonococcus By Nucleic Acid AMP Negative (Negative)
== END | disposition home or self-care (01) ==
PROVIDERS: Visit Provider Registered Nurse
DX: Z34.90 Encounter for supervision of normal pregnancy, unspecified, unspecified trimester (principal)
CPT/HCPCS: 87086; 87491; 87591

== ENCOUNTER → 2023-08-23 | Outpatient (CLI) | payer OTHER, SELFPAY ==
[2023-08-23 14:41] LABS: Absolute Lymphocyte Count 1.53 X10^3/uL (0.83-4.51); Absolute Neutrophil Count 4.2 X10^3/uL (2.0-7.7); Basophil# 0.03 X10^3/uL; Basophil% 0.5 % (0-1); Eosinophil# 0.07 X10^3/uL; Eosinophils% 1.1 % (0-5); Hematocrit 32.9 % (37-47); Lymphocyte # 1.53 X10^3/ul (0.83-4.51); Lymphocyte % 25.1 % (19-41); Mean Corp Hgb Conc 30.4 g/dL (32-36); Mean Corpuscular Hgb 23.6 pg (27.0-32.0); Mean Corpuscular Volume 77.6 fL (81-99); Monocyte# 0.28 X10^3/uL; Monocyte% 4.6 % (0-10); NRBC Flagged by Analyzer 0 % (0-5); Neutrophil # 4.16 X10^3/uL (2.7-7.7); Neutrophil % 68.2 % (47-70); Platelet Count 318 K/mm3 (150-450); RBC Distribution Width CV 18.4 % (11.6-14.6); RBC Distribution Width SD 51.8 fl (35.1-43.9); Red Blood Count 4.24 M/mm3 (4.2-5.4); White Blood Count 6.1 K/mm3 (4.4-11.0)
[2023-08-23 15:16] LABS: Ferritin 7 ng/mL (8-252); Iron Binding Capacity,Total 424 ug/dL (250-450)
[2023-08-23 15:57] LABS: HIV - WCH Non-Reactive (Nonreactive); Hepatitis B Surface Antigen Non-Reactive (Nonreactive); Hepatitis C Antibody Non-Reactive (Nonreactive); Rubella IgG Reactive (Nonreactive); Syphilis Antibodies Non-reactive
== END | disposition home or self-care (01) ==
LOC: LAB 13:48
PROVIDERS: Obstetrics & Gynecology; PCP Family Medicine; Referring Provider Registered Nurse; Visit Provider Registered Nurse
DX: O99.02 Anemia complicating childbirth (principal); Z3A.00 Weeks of gestation of pregnancy not specified
CPT/HCPCS: 36415; 82728; 83550; 85025; 86703; 86762; 86780; 86803; 86850; 86900; 86901; 87340

== ENCOUNTER → 2023-12-06 | Outpatient (CLI) | payer OTHER, SELFPAY ==
[2023-12-06 15:56] LABS: Absolute Lymphocyte Count 1.37 X10^3/uL (0.83-4.51); Absolute Neutrophil Count 4.3 X10^3/uL (2.0-7.7); Basophil# 0.02 X10^3/uL; Basophil% 0.3 % (0-1); Eosinophil# 0.05 X10^3/uL; Eosinophils% 0.8 % (0-5); Hematocrit 28.5 % (37-47); Hemoglobin 9.1 g/dL (12.0-15.0); Lymphocyte # 1.37 X10^3/ul (0.83-4.51); Lymphocyte % 22.5 % (19-41); Mean Corp Hgb Conc 31.9 g/dL (32-36); Mean Corpuscular Hgb 26.9 pg (27.0-32.0); Mean Corpuscular Volume 84.3 fL (81-99); Mean Platelet Vol. 9.9 fl (6.2-12.0); Monocyte# 0.35 X10^3/uL; Monocyte% 5.7 % (0-10); NRBC Flagged by Analyzer 0 % (0-5); Neutrophil # 4.27 X10^3/uL (2.7-7.7); Platelet Count 245 K/mm3 (150-450); RBC Distribution Width CV 15.6 % (11.6-14.6); RBC Distribution Width SD 47.2 fl (35.1-43.9); Red Blood Count 3.38 M/mm3 (4.2-5.4); White Blood Count 6.1 K/mm3 (4.4-11.0)
[2023-12-06 16:25] LABS: Glucose Challenge Gest 1H 50g 138 mg/dL (70-140)
--- OUTSIDE RECORDS SUMMARY | 2023-12-06 16:42 | XMS RPT_ITS | CCD ---
Author Name Unknown Address [facility] [address] [place] [address] Organization [facility] Care Team Providers Care Game Advisor Name Role Phone CHICHI SCHROEDER DC Admitting Unavailable CHICHI SCHROEDER DC Attending Unavailable CHICHI SCHROEDER DC Primary Care Unavailable JARRED WORRELL Referring Unavailab JARRED Ramirez Attending Unavailab DEBRA Hill Primary Care UnavailTIFFANY Gupta Primary Care Unavailjulia e Allergies Allergy Classification Reported Allergen(s) Allergy Type Date of Onset Reaction(s) Facility (1 source) Naproxen; Translations: [NAPROXEN] Drug Allergy 05-14-2013 [facility] Repository Results Test Name Value Interpretation Reference Range Facil ity Encounters Encounter Date Encounter Type Care Provider Facility Start: 10-23-2023 End: 10-23-2023 ambulatory TIFFANY SARKAR Facility:[facility] Start: 10-14-2023 End: 10-14-2023 ambulatory JARRED WORRELL [facility] Start: 12-03-2022 End: 12-03-2022 ambulatory CHICHI [facility] Payers Date Payer Category Payer Unknown [id number] 1995 Unknown [id number] 1995 Unknown [id number] Unknown Progress note 10-23-2023 Note Date & Type Note Facility 10-23-2023 Note HNO ID: [id number] Author: Leticia Benitez PA-C Service: ? Author Type: Physician Motor Vehicle Inspector Type: Progress Notes Filed: 10/23/2023 10:35 AM Note Text: This note was created using [email or web address]. Subjective Maira Celestin is a 28 year old female. HPI Patient presents with sore throat over the past 3 days. She has had minimal congestion. Denies cough. Her daughter has had a runny nose cough and fever over the past days as well. Her tested positive for strep last week so she wanted to be tested for strep. She is 21 weeks . She has not had a fever. No chest pain or shortness of breath. No abdominal pain vomiting or diarrhea. Review of Systems Constitutional: Negative. HENT: Positive for congestion and sore throat. Negative for ear pain and rhinorrhea. Respiratory: Negative for cough. Cardiovascular: Negative. Gastrointestinal: Negative. Genitourinary: Negative. Musculoskeletal: Negative. All other systems reviewed and are negative. PAST MEDICAL HISTORY Diagnosis Date Chlamydia contact, treated Nontraumatic rupture of Achilles tendon 02/2009 Right Unspecified closed fracture of ankle Right ankle Current Outpatient Medications Medication Sig Dispense Refill PNV no.95/ferrous fum/folic ac ( ORAL) Take by mouth. ferrous sulfate (SLOW FE ORAL) Take by mouth. Levonorgestrel-Ethinyl Estrad 0.1mg - 20mcg per tablet Take 1 tablet by mouth once daily. (Patient not taking: Reported on 10/23/2023) misoprostol (CYTOTEC) 200 mcg tablet 2 tablets night po night prior to procedure and repeat in morning. (Patient not taking: Reported on 10/23/2023) 4 tablet 0 LORATADINE (CLARITIN ORAL) Take by mouth. (Patient not taking: Reported on 10/23/2023) No current facility-administered medications for this visit. PAST SURGICAL HISTORY Procedure Laterality Date PAST SURGICAL HISTORY OF Eye surgery, Sty removed FAMILY HISTORY Problem Relation Age of Onset Hypertension Father Heart Maternal Grandfather Heart Paternal Grandfather other (Migraines [Other]) Maternal Grandmother Heart Maternal Uncle Heart Maternal Uncle Heart Maternal Uncle Cancer Maternal Grandmother Skin-Melanoma Colon Cancer Mother Prostate Cancer Other MGGF Social History Tobacco Use Smoking status: Never Smokeless tobacco: Never Substance Use Topics Alcohol use: No Drug use: No Objective BP 120/70 Pulse 114 Temp 36.7 ?C (98 ?F) Resp 16 Wt 68.9 kg (152 lb) LMP 11/22/2015 SpO2 99% BMI 26.42 kg/m? Physical Exam Vitals reviewed. Constitutional: Appearance: Normal appearance. HENT: Head: Normocephalic and atraumatic. Right Ear: Tympanic membrane, ear canal and external ear normal. Left Ear: Tympanic membrane, ear canal and external ear normal. Nose: Nose normal. Mouth/Throat: Mouth: Mucous membranes are moist. Pharynx: Posterior oropharyngeal erythema present. No oropharyngeal exudate. Cardiovascular: Rate and Rhythm: Normal rate and regular rhythm. Heart sounds: Normal heart sounds. Pulmonary: Effort: Pulmonary effort is normal. Breath sounds: Normal breath sounds. Musculoskeletal: Cervical back: Neck supple. Lymphadenopathy: Cervical: No cervical adenopathy. Skin: General: Skin is warm and dry. Findings: No rash. Neurological: Mental Status: She is alert. Assessment and Plan ASSESSMENT/PLAN: 1. Sore throat - ICD9: 462, ICD10: J02.9 - Group A strep molecular testing negative - Discussed supportive care treatment with fluids, rest and analgesia. - The patient should follow up in 3-5 days if symptoms persist or worsen Leticia Benitez PA-C [facility] Summary Purpose Family History No Family History Records FoundNo Family History Records FoundNo Family History Records Found Advance Directives No Advanced Directives Records FoundNo Advanced Directives Records FoundNo Advanced Directives Records Found Additional Source Comments INFORMATION SOURCE (unrecogn ized section and content) DATE CREATED AUTHOR AUTHOR'S ORGANIZ ATION 10/15/2023 [facility] DATE CREATED AUTHOR AUTHOR'S ORGANIZ ATION 10/24/2023 [facility] FOR RECORDS PERTAINING TO PATIENTS WHO ARE OR HAVE BEEN ENROLLED IN A CHEMICAL DEPENDENCY/SUBSTANCEABUSE PROGRAM, SOME INFORMATION MAY BE OMITTED. This clinical summary was aggregated from multiple sources. Caution should be exercised in using it in the provision of clinical care. This summary normalizes information from multiple sources, and as a consequence, information in this document may materially change the coding, format and clinical context of patient data. In addition, data may be omitted in some cases. CLINICAL DECISIONS SHOULD BE BASED ON THE PRIMARY CLINICAL RECORDS. [employer] [facility]. provides no warranty or guarantee of the accuracy or completeness of information in this document.
[2023-12-06 16:57] LABS: HIV - WCH Non-Reactive (Nonreactive); Syphilis Antibodies Non-reactive
== END | disposition home or self-care (01) ==
LOC: LAB 15:05
PROVIDERS: PCP Family Medicine; Referring Provider Obstetrics & Gynecology; Visit Provider Obstetrics & Gynecology
DX: Z34.90 Encounter for supervision of normal pregnancy, unspecified, unspecified trimester (principal)
CPT/HCPCS: 36415; 82950; 85025; 86703; 86780

== ENCOUNTER → 2023-12-16 | Outpatient (CLI) | payer OTHER, SELFPAY ==
--- OUTSIDE RECORDS SUMMARY | 2023-12-16 07:00 | XMS RPT_ITS | CCD ---
Author Name Unknown Address [facility] [address] [place] [address] Organization [facility] Care Team Providers Care Machinist Instructor Name Role Phone CHICHI SCHROEDER DC Admitting Unavailable CHICHI SCHROEDER DC Attending Unavailable CHICHI SCHROEDER DC Primary Care Unavailable JARRED WORRELL Referring Unavailab JARRED Ramirez Attending Unavailab DEBRA Hill Primary Care UnavailTIFFANY Gupta Primary Care Unavailjulia e Allergies Allergy Classification Reported Allergen(s) Allergy Type Date of Onset Reaction(s) Facility (1 source) Naproxen; Translations: [NAPROXEN] Drug Allergy 05-14-2013 [facility] Repository Results Test Name Value Interpretation Reference Range Facil ity Encounters Encounter Date Encounter Type Care Provider Facility Start: 10-23-2023 End: 10-23-2023 ambulatory TIFFANY SARKAR Facility:[facility] Start: 10-14-2023 End: 10-14-2023 ambulatory JARRED WORRELL [facility] Start: 12-03-2022 End: 12-03-2022 ambulatory CHICHI [facility] Payers Date Payer Category Payer Unknown [id number] 1995 Unknown [id number] 1995 Unknown [id number] Unknown Progress note 10-23-2023 Note Date & Type Note Facility 10-23-2023 Note HNO ID: [id number] Author: Leticia Benitez PA-C Service: ? Author Type: Physician Optical Instrument Inspector Type: Progress Notes Filed: 10/23/2023 10:35 AM Note Text: This note was created using [email or web address]. Subjective Maira Celestin is a 28 year [...] symptoms persist or worsen Leticia Benitez PA-C [facility] Summary Purpose Family History No Family History Records FoundNo Family History Records FoundNo Family History Records Found Advance Directives No Advanced Directives Records FoundNo Advanced Directives Records FoundNo Advanced Directives Records Found Additional Source Comments INFORMATION SOURCE (unrecogn ized section and content) DATE CREATED AUTHOR AUTHOR'S ORGANIZ ATION 10/15/2023 [facility] DATE CREATED AUTHOR AUTHOR'S ORGANIZ ATION 10/24/2023 [facility] FOR RECORDS PERTAINING TO PATIENTS WHO ARE [...] BE BASED ON THE PRIMARY CLINICAL RECORDS. [employer] [facility]. provides no warranty or guarantee of the accuracy or completeness of information in this document.
[2023-12-16 07:53] LABS: Glucose GTT-Gestation. Fasting 87 mg/dL (<105)
[2023-12-16 08:21] LABS: Vitamin B12 276 pg/mL (211-911)
[2023-12-16 09:17] LABS: Glucose GTT-Gestational 1 Hr 157 mg/dL (<190)
[2023-12-16 09:43] LABS: Glucose GTT-Gestational 2 Hr 184 mg/dL (<165)
[2023-12-16 10:37] LABS: Ferritin 8 ng/mL (8-252); Iron Binding Capacity,Total 436 ug/dL (250-450)
[2023-12-16 11:55] LABS: Glucose GTT-Gestational 3 Hr 135 L (<145)
== END | disposition home or self-care (01) ==
LOC: LAB 06:58
PROVIDERS: PCP Family Medicine; Visit Provider Obstetrics & Gynecology
DX: Z13.1 Encounter for screening for diabetes mellitus (principal); D64.9 Anemia, unspecified
CPT/HCPCS: 36415; 82607; 82728; 82746; 82951; 82952; 83550

== ENCOUNTER → 2024-01-09 | Outpatient (CLI) | payer OTHER, SELFPAY ==
[2024-01-09 08:57] LABS: Absolute Neutrophil Count 3.6 X10^3/uL (2.0-7.7); Basophil# 0.04 X10^3/uL; Basophil% 0.7 % (0-1); Eosinophil# 0.08 X10^3/uL; Eosinophils% 1.5 % (0-5); Hematocrit 31.9 % (37-47); Hemoglobin 9.7 g/dL (12.0-15.0); Lymphocyte % 25.4 % (19-41); Mean Corp Hgb Conc 30.4 g/dL (32-36); Mean Corpuscular Hgb 25.9 pg (27.0-32.0); Mean Corpuscular Volume 85.1 fL (81-99); Mean Platelet Vol. 9.7 fl (6.2-12.0); Monocyte# 0.38 X10^3/uL; Monocyte% 6.9 % (0-10); NRBC Flagged by Analyzer 0 % (0-5); Neutrophil # 3.55 X10^3/uL (2.7-7.7); Neutrophil % 64.4 % (47-70); Platelet Count 197 K/mm3 (150-450); RBC Distribution Width CV 15.1 % (11.6-14.6); RBC Distribution Width SD 46.7 fl (35.1-43.9); Red Blood Count 3.75 M/mm3 (4.2-5.4); White Blood Count 5.5 K/mm3 (4.4-11.0)
== END | disposition home or self-care (01) ==
LOC: PAVLAB 08:39
PROVIDERS: PCP Family Medicine; Referring Provider Advanced Practice Midwife; Visit Provider Advanced Practice Midwife
DX: D64.9 Anemia, unspecified (principal)
CPT/HCPCS: 36415; 85025

== ENCOUNTER → 2024-02-07 | Outpatient (CLI) | payer OTHER, SELFPAY | END | disposition home or self-care (01) | PROVIDERS: PCP Family Medicine; Referring Provider Obstetrics & Gynecology; Visit Provider Obstetrics & Gynecology | DX: Z34.90 Encounter for supervision of normal pregnancy, unspecified, unspecified trimester (principal) | CPT/HCPCS: 87081 ==

== ENCOUNTER → 2024-02-20 | Outpatient (CLI) | payer OTHER, SELFPAY ==
--- NOTE | 2024-02-20 07:52 | US_ITS ---
STUDY: SECOND AND THIRD TRIMESTER OBSTETRICAL ULTRASOUND - LIMITED REASON FOR EXAM: Female, 28 years old growth, history of large for gestational age baby LMP: May 25, 2023. PRIOR ULTRASOUND: None. TECHNIQUE: Transabdominal TECHNICAL QUALITY: Adequate. FINDINGS: There is a single intrauterine fetus. The fetus is in a cephalic presentation. There is demonstrated cardiac activity with a heart rate of 152 bpm. There is a normal amniotic fluid volume. The largest amniotic fluid pocket measures 4.5 cm. The amniotic fluid index (KELLE) is 11.95 cm. The placenta is fundal in location. There are Grade 2 placental changes. The cervical measurement was not obtained due to head position. BIOMETRY: BPD: 9.46 cm: 38 weeks, 4 days HC: 33.69 cm: 38 weeks, 4 days AC: 35.13 cm: 39 weeks, 0 days FL: 7.62 cm: 39 weeks, 0 days Age by LMP: 38 weeks, 5 days. ZOË by LMP: February 29, 2024. age by current US: 38 weeks, 4 days. ZOË by current US: March 01, 2024. Estimated weight: 3682 grams, +/- 552 grams, 75 percentile. US/OB Limited With Biometrics IMPRESSION: Single live intrauterine gestation of 38 weeks and 4 days. Electronically Signed: Dima Edwards MD at 14:46 EDT ,
== END | disposition home or self-care (01) ==
LOC: OPUS 07:52
PROVIDERS: PCP Family Medicine; Referring Provider Obstetrics & Gynecology; Visit Provider Obstetrics & Gynecology
DX: O36.60X0 Maternal care for excessive fetal growth, unspecified trimester, not applicable or unspecified (principal); O99.810 Abnormal glucose complicating pregnancy; Z3A.00 Weeks of gestation of pregnancy not specified
CPT/HCPCS: 76816

== ENCOUNTER → 2024-02-25 | Outpatient (CLI) | payer OTHER, SELFPAY ==
[2024-02-25 15:39] LABS: ROM Internal Control Test YES-OK TO RESULT pt. (Internal QC); ROM Patient Test Negative (Negative)
== END | disposition home or self-care (01) ==
PROVIDERS: PCP Family Medicine; Visit Provider Obstetrics & Gynecology
DX: O99.891 Other specified diseases and conditions complicating pregnancy (principal); N89.8 Other specified noninflammatory disorders of vagina; Z3A.00 Weeks of gestation of pregnancy not specified
CPT/HCPCS: 84112

== ENCOUNTER 2024-03-01 07:06 | Inpatient (IN) | payer OTHER, SELFPAY ==
[2024-03-01] VITALS (20 sets, daily range): BP systolic 109–138; BP diastolic 60–80; PULSE 82–116; RESP 14–21; TEMP 36.4–37.4; O2SAT 95–100; BMI 28.0
[2024-03-01] MEDS: Lactated Ringers 1,000 ML 50 ML IV (07:55)
[2024-03-01 08:09] LABS: Absolute Lymphocyte Count 1.81 X10^3/uL (0.83-4.51); Absolute Neutrophil Count 4.1 X10^3/uL (2.0-7.7); Basophil# 0.05 X10^3/uL; Basophil% 0.8 % (0-1); Eosinophil# 0.07 X10^3/uL; Eosinophils% 1.1 % (0-5); Hematocrit 33.5 % (37-47); Hemoglobin 10.4 g/dL (12.0-15.0); Lymphocyte # 1.81 X10^3/ul (0.83-4.51); Lymphocyte % 27.8 % (19-41); Mean Corpuscular Hgb 25.5 pg (27.0-32.0); Mean Corpuscular Volume 82.1 fL (81-99); Mean Platelet Vol. 10.1 fl (6.2-12.0); Monocyte# 0.42 X10^3/uL; Monocyte% 6.5 % (0-10); NRBC Flagged by Analyzer 0 % (0-5); Neutrophil # 4.12 X10^3/uL (2.7-7.7); Neutrophil % 63.3 % (47-70); Platelet Count 212 K/mm3 (150-450); RBC Distribution Width CV 15.4 % (11.6-14.6); RBC Distribution Width SD 45.6 fl (35.1-43.9); Red Blood Count 4.08 M/mm3 (4.2-5.4); White Blood Count 6.5 K/mm3 (4.4-11.0)
[2024-03-01] MEDS: miSOPROStol 25 MCG TABLET VAGINAL (08:50)
[2024-03-01 09:00] LABS: Syphilis Antibodies Non-reactive
--- NOTE | 2024-03-01 10:19 | HP.PCM.OB_ITS ---
HPI - General General Date of Admission: 03/01/24 HPI Narrative MAIRA CELESTIN, is a 28 F who presents at 40.1 for elective IOL. active fetus. Maternal Data Information ZOË Calculator Estimated Delivery Date Method Current WG Current Estimate 02/29/24 LMP (Certain) 40w 1d [facility] Medical History (Updated 03/01/24 @ 10:22 by Rebecca Robert CNM) Left knee injury Home Medications vit 168-iron 27 mg-folic acid 800 mcg-omega3 235 mg capsule (One-A-Day -1) 1 cap PO DAILY 07/26/23 [History Last Taken 02/29/24] ferrous sulfate 325 mg (65 mg iron) tablet 325 mg PO DAILY 09/18/23 [History Last Taken 02/29/24] Allergy/AdvReac Type Severity Reaction Status Date / Time naproxen [From Naprosyn] AdvReac Vomiting Verified 02/25/24 13:54 Family History Mother Colon cancer Father Hypertension Surgical History S/P breast biopsy, bilateral Social History adopted: No household members: spouse housing: house current occupational status: employed current occupation: [employer], assistant counsel clinical director at counseling [employer] [facility] [place] [facility] pets and animals: Yes pets and animals: dog(s) history of recent travel: No sexually active: Yes Smoking Status: Never smoker second hand exposure: No alcohol intake: never substance use type: does not use caffeine: No frequency: 1-2 times per week seatbelt use: always do you feel safe at home: Yes additional social history: V[employer] History 2 Elective abortions Hx Para 1 Spontaneous abortions Hx # Term Pregnancies Ectopic pregnancies Hx # Pregnancies Multiple births # of living children 1 Past Pregnancies Del. Date Name GA/Weeks Outcome Route Bth Weight Infant Gen Labor Lgth Anesthesia Del Locatn Provider FOB 03/27/20 Jude Beth 39 live - full term 8lbs 10oz Female local [facility] Delivery Date: 03/27/20 Last Updated by: Kimberly Maldonado 2 degree lac Visit Details Expected Delivery Route/Plan = Labor Preferences- CB/BF classes: no labor support person: Víctor labor intervention preferences: [] pain management options preferred: limited cut cord/dad catch: yes : yes PP control planned: discussed/condoms discussed possible routes of delivery and associated risks: [] special requests: [] Plans Covid status: [] Flu vaccine: declined Tdap vaccine: delinced Rhogam: na LARC form signed: yes movement and labor precautions reviewed. Problem list reviewed and updated with the most current plan of care details and appropriate orders placed. Relevant counseling for the gestational age provided. Continue routine care and follow up unless otherwise noted in visit notes/problem list details OB Flowsheet Initial Weight: 142 lb Date -?-?-?-?-?-?-?-?-?-?-?-?- EGA Weight BP Urine Prot -?-?-?-?-?-?-?-?-?-?-?-?- Glucose FHR FuHt Pres Dilation -?-?-?-?-?-?-?-?-?-?-?-?- Effaced St Visit Note 07/26/23 -?-?-?-?-?-?-?-?-?-?-?-?- 8w 6d 142 lb 4 oz (+4 oz) 108/71 -?-?-?-?-?-?-?-?-?-?-?-?- 171 -?-?-?-?-?-?-?-?-?-?-?-?- LC- crl 19 con w ith LMP. TERESA 1.9mm small vaginal bleeding today. confirmed FHR LC- crl 19 con with LMP. TERESA 1.9mm small vaginal bleeding today. declines nipt. 08/23/23 -?-?-?-?-?-?-?-?-?-?-?-?- 12w 6d 141 lb (-16 oz) 125/82 Negative -?-?-?-?-?-?-?-?-?-?-?-?- Negative 153 -?-?-?-?-?-?-?-?-?-?-?-?- JV- JV-pt needs new ob labs. bed side scan shows that TERESA is now 0.88 cm. pt reassured. tibc and ferritin ordered for h/o anemia and iron transfusions. 09/18/23 -?-?-?-?-?-?-?-?-?-?-?-?- 16w 4d 145 lb 8 oz (+3 lb 8 oz) 116/70 Trace -?-?-?-?-?-?-?-?-?-?-?-?- Negative 161 -?-?-?-?-?-?-?-?-?-?-?-?- MH-No VB. Nausea resolved. Enc to switch from gummie to tablet. Has not started slow FE yet and encouraged. 10/18/23 -?-?-?-?-?-?-?-?-?-?-?-?- 20w 6d 149 lb 6 oz (+7 lb 6 oz) 119/79 Negative -?-?-?-?-?-?-?-?-?-?-?-?- Negative 150 -?-?-?-?-?-?-?-?-?-?-?-?- JV- normal anato my scan reviewed. continue iron for anemia. no complaints. 11/14/23 -?-?-?-?-?-?-?-?-?-?-?-?- 24w 5d 155 lb (+13 lb) 113/75 Negative -?-?-?-?-?-?-?-?-?-?-?-?- Negative 150 24 -?-?-?-?-?-?-?-?-?-?-?-?- SM- no vb lof go od fm no regular ctx 12/06/23 -?-?-?-?-?-?-?-?-?-?-?-?- 27w 6d 160 lb (+18 lb) 115/72 Negative -?-?-?-?-?-?-?-?-?-?-?-?- Negative 140 29 -?-?-?-?-?-?-?-?-?-?-?-?- SM- no vb lof go od fm no regular ctx 12/26/23 -?-?-?-?-?-?-?-?-?-?-?-?- 30w 5d 160 lb 8 oz (+18 lb 8 oz) 119/75 Negative -?-?-?-?-?-?-?-?-?-?-?-?- Negative 144 30 -?-?-?-?-?-?-?--?-?-?-?-?- KW- no vb/lof/cr amping. good fm. LARC done. declines Tdap. 01/09/24 -?-?-?-?-?-?-?-?-?-?-?-?- 32w 5d 161 lb 4 oz (+19 lb 4 oz) 118/68 Negative -?-?-?-?-?-?-?-?-?-?-?-?- Negative 152 33 -?-?-?-?-?-?-?-?-?-?-?-?- MH-No VB, LOF. G ood FM. CBC today. Denies concerns 01/23/24 -?-?-?-?-?-?-?-?-?-?-?-?- 34w 5d 166 lb 4 oz (+24 lb 4 oz) 121/73 Negative -?-?-?-?-?-?-?-?-?-?-?-?- Negative 130 36 -?-?-?-?-?-?-?-?-?-?-?-?- SM- no vb lof go od fm no regular ctx 02/07/24 -?-?-?-?-?-?-?-?-?-?-?-?- 36w 6d 164 lb (+22 lb) 131/81 -?-?-?-?-?-?-?-?-?-?-?-?- 145 37 1 -?-?-?-?-?-?-?-?-?-?-?-?- 20 -3 LC-no vb/c tx/lof. good fm.gbs collected 02/14/24 -?-?-?-?-?-?-?-?-?-?-?-?- 37w 6d 166 lb 8 oz (+24 lb 8 oz) 130/89 Negative -?-?-?-?-?-?-?-?-?-?-?-?- Negative 158 38 1 -?-?-?-?-?-?-?-?-?-?-?-?- JV- no com plaints today GBS neg JV- no complaints today GBS neg. h/o LGA, will order growth scan. 02/21/24 -?-?-?-?-?-?-?-?-?-?-?-?- 38w 6d 165 lb 4 oz (+23 lb 4 oz) 129/82 Negative -?-?-?-?-?-?-?-?-?-?-?-?- Negative 135 38 Cephalic 2 -?-?-?-?-?-?-?-?-?-?-?-?- JV- growth is 75th%. ok to proceed with expectant management. no lof, vaginal bleeding, or dec fm.. 02/25/24 -?-?-?-?-?-?-?-?-?-?-?-?- 39w 3d 165 lb 2 oz (+23 lb 2 oz) 133/86 Negative -?-?-?-?-?-?-?-?-?-?-?-?- Negative 145 40 Cephalic 2 .5 -?-?-?-?-?-?-?-?-?-?-?-?- 60 -2 JV- EFW 8. bs 5 oz now. planning elective IOL on saturday. ROS Cardiovascular Cardiovascular: Denies abdominal pain, chest pain, diaphoresis or dyspnea Respiratory/Chest Respiratory/Chest: Denies change in mental status, chest congestion, chest tightness, cough, shortness of breath at rest, shortness of breath with exertion, breast mass, breast pain, breast skin changes, breast swelling, change in breast shape or nipple discharge Genitourinary Genitourinary: Reports change in urinary stream Musculoskeletal Musculoskeletal: Reports none Integumentary Integumentary: Reports none Neurologic Neurologic: Reports none Psychiatric Psychiatric: Reports none Endocrine Endocrinology: Reports none Hematologic/Lymphatic Hematologic/Lymphatic: Reports none Allergic/Immunologic Allergic/Immunologic: Reports none Vital Signs Vital Signs Vital Signs: 03/01/24 08:18 03/01/24 08:19 03/01/24 08:18 Temperature Temperature Source Pulse Rate 116 H 104 H Respiratory Rate Blood Pressure 129/75 H BP Systolic 129 BP Diastolic 75 Pulse Ox 03/01/24 08:19 03/01/24 08:17 03/01/24 08:17 Temperature Temperature Source Oral Pulse Rate Respiratory Rate 16 Blood Pressure BP Systolic BP Diastolic Pulse Ox 98 03/01/24 08:17 Temperature 98.0 F Temperature Source Pulse Rate Respiratory Rate Blood Pressure BP Systolic BP Diastolic Pulse Ox Weight Weight: 163 lb 9.6 oz Body Mass Index (BMI) 28.0 Physical Exam Const alert, oriented x3 and no apparent distress General Appearance: cooperative, comfortable and well kempt Orientation / Consciousness: awake and oriented to person Exam Limitations: no limitations HEENT normocephalic Neck full ROM Chest inspection of chest normal Resp normal respiratory effort, normal air movement and no retractions Effort and Inspection: able to speak in complete sentences and symmetric chest movement Cardio regular rate Peripheral Pulses: pulses 2+ throughout GI normal to inspection, nondistended, normoactive bowel sounds Inspection: gravid no CVA tenderness and appearance of the vagina normal External Female Exam: normal appearance of the urethra; Negative for external lesion OB / External & Speculum: external exam normal Manual OB Exam: estimated gestational size appropriate and presentation cephalic Uterus Palpation: Negative for uterus tender Extremity normal to inspection Skin no rashes or lesions noted Neuro deep tendon reflexes 2+ bilaterally and gait normal Motor Exam: strength 5/5 throughout and clonus absent Psych Activity / Motor Behavior: appropriate eye contact Speech: normal speech Labs Labs Labs: Blood Type A POSITIVE Antibody Screen NEGATIVE Hct 33.5 % (37-47) L Hgb 10.4 g/dL (12.0-15.0) L Obstetrics Ultrasound Syphilis Total Ab Non-reactive Rubella IgG Antibody Reactive (Nonreactive) Hep Bs Antigen Non-Reactive (Nonreactive) Hepatitis C Antibody Non-Reactive (Nonreactive) Chlamydia DNA (JONNY) Negative (Negative) N.gonorrhoeae DNA (JONNY) Negative (Negative) HIV 1&2 Antibody Non-Reactive (Nonreactive) Glucose 1 Hr 50 gm 138 mg/dL (70-140) Gest Glucose Tolerance MG/DL Rhogam given: No Assessment & Plan (1) Encounter for induction of labor: COMMENT: cytotec for unfavorable castaneda score plan pitocin/AROM pt planning on unmedicated delivery (2) Anemia: QUALIFIERS: Anemia type: iron deficiency Iron deficiency anemia type: unspecified iron deficiency Qualified Code(s): D50.9 - Iron deficiency anemia, unspecified COMMENT: Enc vitamin tablet w FE and take slow Fe alternate time. Fe studies and folate nl. Rpt CBC:9.7 (3) Supervision of normal : QUALIFIERS: Normal : other normal Trimester: third trimester Qualified Code(s): Z34.83 - Encounter for supervision of other normal , third trimester COMMENT: PRR ZOË:02/29/2024 girl Karrie PC: Jude Spouse Víctor (4) : QUALIFIERS: Weeks of gestation: 39 weeks Qualified Code(s): Z3A.39 - 39 weeks gestation of COMMENT: GBS NEG. declines genetic, carrier and NTD testing at this time. nl anatomy. PLAN: Plan Patient presents IOL, plan management for with pitocin/AROM. Pain management: plans unmedicated. GBS negative. Management of any complications: [none] I have reviewed the [facility] and made any clinically relevant updates. Dr. Hyde updated on admission, exam and poc and agrees with midwifery management.
[2024-03-01] MEDS: Oxytocin 15 Units/NS 250ml 15 UNITS/250 ML IV.SOLN 2 UNITS IV (13:09)
--- NOTE | 2024-03-01 21:26 | PCM.PN.OB ---
Subjective Subjective more uncomfortable with contractions. Objective Data Objective Data Vital Signs: Vital Signs Temp Pulse Resp BP Pulse Ox 98.4 F 88 18 109/68 99 03/01/24 20:24 03/01/24 20:24 03/01/24 20:24 03/01/24 20:24 03/01/24 20:24 Weight: 163 lb 9.6 oz Body Mass Index (BMI) 28.0 Intake & Output: Intake and Output for Last 24 Hours 02/28/24 02/29/24 03/01/24 23:59 23:59 23:59 Intake Total 2772.13 / 2772.13 Output Total 200 / 200 Balance 2572.13 / 2572.13 Lab / Micro Data 03/01/24 07:55 Labs: Laboratory Results - last 24 hr 03/01/24 07:55: WBC 6.5, RBC 4.08 L, Hgb 10.4 L, Hct 33.5 L, MCV 82.1, MCH 25.5 L, MCHC 31.0 L, RDW Std Deviation 45.6 H, RDW Coeff of Itzel 15.4 H, Plt Count 212, MPV 10.1, Immature Gran % (Auto) 0.500, Neut % (Auto) 63.3, Lymph % (Auto) 27.8, [place] % (Auto) 6.5, Eos % (Auto) 1.1, Baso % (Auto) 0.8, Absolute Neuts (auto) 4.1, Absolute Lymphs (auto) 1.81, Nucleated RBC % 0, Syphilis Total Ab Non-reactive, Blood Type A POSITIVE, Antibody Screen NEGATIVE Physical Exam Const alert and no apparent distress Chest inspection of chest normal Resp normal respiratory effort and normal air movement Manual OB Exam: presentation cephalic, dilated 4, effaced 90 and station -1 Amniotic Fluid: clear amniotic fluid Extremity normal to inspection, full ROM and normal capillary refill Skin no rashes or lesions noted NST FHR Rate Baby A Baseline: 140 Variability:: Moderate Accelerations:: 15 x 15 Decelerations:: None NST Reactive:: Yes FHR Category:: Category I Uterine Activity:: q2-3 Assessment & Plan (1) Encounter for induction of labor: COMMENT: cytotec for unfavorable castaneda score plan pitocin/AROM pt planning on unmedicated delivery PLAN: AROM for clear fluid hydrotherapy for comfort continue repositioning. -reassuring maternal and status. -now in active labor. (2) LGA (large for gestational age) fetus affecting management of mother:
[2024-03-01] MEDS: LACTATED RINGERS 500 ML 999 ML IV (22:11)
[2024-03-02] VITALS (23 sets, daily range): BP systolic 111–128; BP diastolic 62–78; PULSE 78–110; RESP 16–24; TEMP 36.3–37.7; O2SAT 95–100
[2024-03-02] MEDS: LACTATED RINGERS 500 ML 999 ML IV (00:39)
[2024-03-02] MEDS: DiphenhydrAMINE 50 MG/ML Syringe IV (00:51)
[2024-03-02] MEDS: Lactated Ringers 1,000 ML 200 ML IV (01:09)
--- NOTE | 2024-03-02 02:43 | CON.PCM_ITS ---
Consult Date of Consult: 03/02/24 Reason for Consult current tracing: recurrent late decelerations with minimal variability despite positioning, oxygen, fluid. FHT: 150 baseline with deeping lates/ occ variables to 90s [place]: q2 Contractions A/P: reviewed tracing with -plan amnioinfusion -Dr. fernández to come to bedside for vacuum vs c/s evaluation -hold pushing unless mod variability without lates.
[2024-03-02] MEDS: Amnioinfusion- 0.9% NS 1,000 ML IV.SOLN. 1000 ML INTRA-UTER (02:55)
[2024-03-02] MEDS: Lidocaine 1% (20 ml mdv) 20 ML Vial INFILT (03:18)
[2024-03-02] MEDS: Methylergonovine 0.2 MG/ML Ampul IM (03:19)
--- NOTE | 2024-03-02 03:31 | EX.PCM.OBRPT ---
Assessment & Plan (1) Encounter for induction of labor: COMMENT: cytotec for unfavorable castaneda score plan pitocin/AROM pt planning on unmedicated delivery (2) LGA (large for gestational age) fetus affecting management of mother: (3) Abnormal glucose level: COMMENT: 3 HR GTT nl (4) Anemia: QUALIFIERS: Anemia type: iron deficiency Iron deficiency anemia type: unspecified iron deficiency Qualified Code(s): D50.9 - Iron deficiency anemia, unspecified COMMENT: Enc vitamin tablet w FE and take slow Fe alternate time. Fe studies and folate nl. Rpt CBC:9.7 (5) Supervision of normal : QUALIFIERS: Normal : other normal Trimester: third trimester Qualified Code(s): Z34.83 - Encounter for supervision of other normal , third trimester COMMENT: PRR ZOË:02/29/2024 girl Karrie PC: Jude Spouse Víctor (6) : QUALIFIERS: Weeks of gestation: 39 weeks Qualified Code(s): Z3A.39 - 39 weeks gestation of COMMENT: GBS NEG. declines genetic, carrier and NTD testing at this time. nl anatomy. Maternal Data Information ZOË Calculator Estimated Delivery Date Method Current WG Current Estimate 02/29/24 LMP (Certain) 40w 2d Gestational age: 40 weeks 2 days [place] Doctor Who Attended Delivery: Jose E Harris Vaginal Delivery Maternal Presentation Maternal Presentation: Elective Induction Type of Induction: Pitocin, Amniotomy and Cytotec Operative Information Date of Procedure: 03/02/24 Pre-Operative Diagnosis: 28 y/o @ 40 weeks 2 days, suspect LGA, OP presentation in labor with intolerance to labor Post-Operative Diagnosis: 28 y/o @ 40 weeks 2 days, suspect LGA, OP presentation in labor with intolerance to labor Type of Anesthesia: None Estimated Blood Loss: 400cc Time of Delivery: 03:11 Findings Description of Procedure: Details of delivery: This is a 23 year old woman who was admitted to labor and delivery for induction of labor for suspected LGA at 40 weeks 2 days. The decision was made to perform a vacuum extraction due to persistent late declerations for 1.5 hours with minimal variability at times. The risk benefits and alternatives of the procedure were discussed with the patient and verbal consent was obtained. The infant was noted to be at a +2 station, the cervix was completely dilated. The 's head was noted to be in the right occiput anterior presentation. The vacuum was placed in the correct placement in front of the posterior fontanelle. This was confirmed digitally. With the patient's next contraction, the vacuum was inflated and a gentle downward pressure was used to assist with bringing the baby's head to a +3 station. With 2 pull and 1 pop offs. An episiotomy was made after the first pop off. The head was delivered atraumatically in the OP position. A tight nuchal cord was noted and delivered . The anterior shoulder followed by the posterior shoulder were delivered without difficulty. The was handed off to the patient's chest. The was found to be vigorous and crying and moving of all 4 extremities. The mouth and nares were bulb suctioned. After 60 second delay the cord was clamped and cut and the infant was handed off to the awaiting nurses for routine assessment. The placenta was delivered with gentle traction and uterine massage. Inspection of the vagina cervix and perineum was performed. There were no lacerations to the vagina or to the cervix. The peritoneum was found to have a 2ndst degree perineal laceration. The perineal laceration was closed using a 3-0 Vicryl in the usual sterile fashion. The patient tolerated the procedure well sponge lap and needle counts were correct x2 and she is now recovering in stable condition. Presentation: Vertex Amniotic Membrane Rupture Type: Artificial Amniotic Fluid Description: Clear Placental Delivery Description: Spontaneous Placenta Disposition: [facility] Cord Vessel Description: 3 Vessels Cord Entanglement: Around neck x 1, tight Nuchal Cord Compression: Without compression Cord Gases: ABG and VBG Infant A Gender: Female (1 minute): 8 (5 minute): 8 Delayed Cord Clamping: Yes Post Vaginal Delivery Medications Given After Delivery: IV Pitocin and IM Methergin Episiotomy Description: 2nd degree Complication Complications: None Multi Select Codes Urinary/Genital Urinary/Genital CPT Codes: 04743 Vaginal Delivery [facility] [place]
[2024-03-02] MEDS: Oxytocin 15 Units/NS 250ml 15 UNITS/250 ML IV.SOLN 83 UNITS IV (03:35)
--- NOTE | 2024-03-02 03:37 | DCINST_ITS ---
Discharge Instructions Diet Discharge Diet: No restrictions Activity Discharge Activity: Return to Normal Activity, May Not Drive (while taking narcotic pain medications.) and May Shower May resume sexual activity in: 4-6 weeks Dressing / Incision Call your doctor if your incision/area has: Continuous Slow Oozing, Sudden Increased Bleeding, Increased Pain/ Swelling, Increased Redness and Foul Smelling Discharge Follow Up Care Please Follow Up With: Priya Chamberlain, DO When: Call [phone] to make an appointment with your doctor in 6 weeks. If you had elevated blood pressure or 4th degree laceration, you will need to be seen in 2 weeks. Test Results: Test results from this visit will be discussed in further detail at your follow- up appointment, if applicable. Discharge Plan Admission Admit Date/Time: 03/01/24 07:06 Attending Provider: Priya Chamberlain Primary Care Provider: Olu Molina Discharge Orders/Prescriptions Prescriptions: No Action One-A-Day -1 27 mg iron- 800 mcg-235 mg capsule 1 cap PO DAILY ferrous sulfate 325 mg (65 mg iron) tablet 325 mg PO DAILY Referrals / Follow Up: Olu Molina MD [Primary Care Provider] - Disposition Disposition (needs filled in before D/C Order can be placed): Home, Self Care
[2024-03-02] MEDS: Benzocaine/Lanolin/Aloe Vera 1 SPRAY EACH TOPICAL (04:09)
[2024-03-02] MEDS: Acetaminophen 500 MG Tablet 1000 MG PO ×3 (04:09→16:49)
[2024-03-02] MEDS: 0.9% Saline Lock 10 ML Syringe IV (06:37)
[2024-03-02] MEDS: Ibuprofen 600 MG Tablet PO ×3 (07:15→19:53)
[2024-03-03] MEDS: Acetaminophen 500 MG Tablet 1000 MG PO ×2 (01:13→06:56)
[2024-03-03 01:15] VITALS: BP 111/70; PULSE 87; PULSE 91; RESP 16; TEMP 36.2; O2SAT 98
[2024-03-03] MEDS: Ibuprofen 600 MG Tablet PO (03:49)
[2024-03-03 03:50] VITALS: BP 133/76; PULSE 111
[2024-03-03 03:51] VITALS: BP 133/76; PULSE 101; RESP 16; TEMP 36.3; O2SAT 97
[2024-03-03 08:20] VITALS: BP 109/61; PULSE 96
[2024-03-03 08:22] VITALS: BP 109/61; PULSE 100; RESP 18; TEMP 36.5; O2SAT 97
--- NOTE | 2024-03-03 09:58 | PCM.PN.OB ---
Subjective Subjective Patient doing well without complaints. Tolerating PO. Ambulating and voiding without difficulty. feeding well. Denies chest pain, shortness of breath, calf pain/swelling, fevers, chills, lightheadedness. Objective Data Objective Data Vital Signs: Vital Signs Temp Pulse Resp BP Pulse Ox O2 Del Method 97.7 F L 100 18 109/61 97 Room Air 03/03/24 08:22 03/03/24 08:22 03/03/24 08:22 03/03/24 08:22 03/03/24 08:22 03/03/24 08:23 Oxygen Delivery Method Room Air Weight: 163 lb 9.6 oz Body Mass Index (BMI) 28.0 Intake & Output: Intake and Output for Last 24 Hours 03/01/24 03/02/24 03/03/24 23:59 23:59 23:59 Intake Total 3749.55 / 3749.55 1873.78 / 1873.78 Output Total 200 / 200 1250 / 1250 Balance 3549.55 / 3549.55 623.78 / 623.78 Lab / Micro Data 03/01/24 07:55 ROS Constitutional Constitutional: Reports systems reviewed and no addt'l complaints, except as documented Cardiovascular Cardiovascular: Reports systems reviewed and no addt'l complaints, except as documented Respiratory/Chest Respiratory/Chest: Reports systems reviewed and no addt'l complaints, except as documented Gastrointestinal Gastrointestinal: Reports systems reviewed and no addt'l complaints, except as documented Physical Exam Const alert, oriented x3 and no apparent distress HEENT Head and Scalp: atraumatic Resp normal respiratory effort GI soft to palpation and non-tender Bimanual Exam - Vag & Uterus: uterus non-tender Uterus Palpation: uterus fundus firm (below Umbilicus) Assessment & Plan (1) Vacuum-assisted vaginal delivery: COMMENT: JV VAVD intolerance, girl:lu PLAN: Plan s/p PPD # 1 1. routine post delivery care 2. breast feeding- support given 3. rh positive 4. rubella immune
[2024-03-03 10:42] VITALS: BP 109/61; PULSE 100; RESP 18; TEMP 36.5; O2SAT 97
--- NOTE | 2024-05-12 09:49 | NURSING ---
edited /para for accuracy
== END 2024-03-03 11:05 | disposition home or self-care (01) | DRG 807 ==
PROVIDERS: Admitting Provider Obstetrics & Gynecology; PCP Family Medicine; Visit Provider Obstetrics & Gynecology
DX: O48.0 Post-term pregnancy (principal); Z37.0 Single live birth; D50.9 Iron deficiency anemia, unspecified; O69.1XX0 Labor and delivery complicated by cord around neck, with compression, not applicable or unspecified; O99.02 Anemia complicating childbirth; Z03.74 Encounter for suspected problem with fetal growth ruled out; O76 Abnormality in fetal heart rate and rhythm complicating labor and delivery; O70.1 Second degree perineal laceration during delivery; Z3A.40 40 weeks gestation of pregnancy
CPT/HCPCS: 59025; 59050; 85025; 86780; 86850; 86900; 86901; 99221; J7030; J7120; A4216; G0378

== ENCOUNTER → 2024-04-13 | Outpatient (CLI) | payer OTHER, SELFPAY | END | disposition home or self-care (01) | LOC: LABSPEC 15:40 | PROVIDERS: PCP Family Medicine; Visit Provider Advanced Practice Midwife | DX: Z12.4 Encounter for screening for malignant neoplasm of cervix (principal) | CPT/HCPCS: 88175; G0145 ==

== ENCOUNTER → 2025-09-29 | Outpatient (CLI) | payer OTHER, SELFPAY ==
[2025-09-29 17:08] LABS: Hematocrit 36.5 % (37-47); Hemoglobin 11.4 g/dL (12.0-15.0); Immature Granulocytes Count 0.020 X10^3/uL (0.0-0.0); Mean Corp Hgb Conc 31.2 g/dL (32-36); Mean Corpuscular Volume 79.0 fL (81-99); Mean Platelet Vol. 9.7 fl (6.2-12.0); NRBC Flagged by Analyzer 0 % (0-5); Platelet Count 346 K/mm3 (150-450); RBC Distribution Width CV 15.3 % (11.6-14.6); RBC Distribution Width SD 44.1 fl (35.1-43.9); Red Blood Count 4.62 M/mm3 (4.2-5.4); White Blood Count 5.7 K/mm3 (4.4-11.0)
[2025-09-29 17:33] LABS: Ferritin 14 ng/mL (22-378); Iron 28 ug/dL (50-170); Iron Binding Capacity,Total 368 ug/dL (250-450); Iron Binding Capacity,Unsat 340 ug/dL (228-428)
== END | disposition home or self-care (01) ==
LOC: BWCLAB 16:31
PROVIDERS: Obstetrics & Gynecology; PCP Family Medicine; Visit Provider Nurse Practitioner Family
DX: N92.3 Ovulation bleeding (principal)
CPT/HCPCS: 36415; 82728; 83540; 83550; 84439; 84443; 85025

== ENCOUNTER → 2025-10-13 | Outpatient (CLI) | payer OTHER, SELFPAY ==
--- NOTE | 2025-10-13 14:50 | US_ITS ---
PROCEDURE: PELVIC W/ TRANSVAGINAL, 10/13/2025 REASON FOR EXAM: INTERMENSTRUAL BLEEDING TECHNIQUE: Grayscale and color doppler transabdominal and transvaginal pelvic ultrasound was performed. COMPARISON: 07/06/2022 FINDINGS: Uterus: 11.1 x 6.7 x 5.3 cm, anteverted and retroflexed. Heterogeneous myometrium. Slightly increased myometrial vascularity in some areas. Endometrium: 13 mm, trilaminar proliferative phase appearance. Focal ill- defined echogenic area on the LEFT difficult to discretely measure but approximating roughly 17 x 9 x 7 mm with associated vascularity. Cervix: Grossly unremarkable. Right ovary: 4.3 x 2.8 x 3.2 cm. Unremarkable, including presumed follicles. Left ovary: 3.3 x 2.6 x 1.9 cm. Unremarkable, including presumed follicles. Free fluid: Trace free fluid, potentially physiologic Other: Bladder is underdistended and suboptimally evaluated. Estimated volume 66 mL.. US/Pelvic w/ Transvaginal IMPRESSION: 1. Findings suggestive of roughly 17 mm endometrial polyp which could be a sour ce of abnormal bleeding. Clinical follow-up such as direct visualization or sonohysteroscopy as indicated. 2. Heterogeneous myometrium may suggest adenomyosis. Slightly increased myomet rial vascularity in some areas is nonspecific but may be an associated finding. 3. Trace pelvic free fluid may be physiologic in this demographic. 4. Additional description as above. Reading Location: [id number]
== END | disposition home or self-care (01) ==
LOC: US 14:46
PROVIDERS: PCP Family Medicine; Referring Provider Obstetrics & Gynecology; Visit Provider Obstetrics & Gynecology
DX: N92.3 Ovulation bleeding (principal)
CPT/HCPCS: 76830; 76856